=== PATIENT | female | born 1965 | race Caucasian/White ===

== ENCOUNTER → 2017-01-09 | Outpatient (REF) | payer MEDICAID ==
[~2017-01-09] MED LIST: FLEXERIL; LEVO25TA2; METH5TAB2
== END ==
LOC: M SFHCWAGY 15:49
PROVIDERS: ATTEND Nurse Practitioner Family
DX: Z12.4 Encounter for screening for malignant neoplasm of cervix (principal); Z12.31 Encounter for screening mammogram for malignant neoplasm of breast

== ENCOUNTER → 2017-01-09 | Outpatient (CLI) | payer MEDICAID ==
--- NOTE | 2017-01-13 08:21 | REPMRS ---
Patient History The patient states she had a clinical breast exam in 01/2017. Patient is postmenopausal and has history of cancer in the left breast at age 44. No known family history of cancer. Malignant lumpectomy of the left breast, 2009. Radiation therapy of the left breast. Taking tamoxifen for 5 years. Digital Woman Screen Mammo: January 09, 2017 - Exam #: [id number] Bilateral CC and MLO view(s) were taken. Technologist: Ilda Segura Technologist Prior study comparison: February 14, 2016, digital woman screen mammo performed at [facility] to [facility]. December 23, 2012, digital woman screen mammo performed at [facility]. December 25, 2011, bilateral digital mammo screening bilat, performed at [facility]. FINDINGS: The breast tissue is heterogeneously dense. This may lower the sensitivity of mammography. Post-treatment changes are again noted in the left breast. A needle biopsy marker clip is again noted in the right breast. There is a moderate amount of heterogeneously dense fibroglandular tissue which is fairly symmetric. There is no interval development of dominant mass, architectural distortion, or clustered microcalcification typical of malignancy. There has been no change in the appearance of the mammogram from the prior studies. ASSESSMENT: BI-RADS/ACR category 2 mammogram. Benign finding(s). Recommendation Routine screening mammogram of both breasts in 1 year (for women over age 40). This mammogram was interpreted with the aid of an FDA-approved computer-aided dectection system. Electronically Signed By: Tay Mauricio MD 01/09/17 [id number]
== END ==
LOC: M WHC 14:54
PROVIDERS: ATTEND Nurse Practitioner Family
DX: Z12.31 Encounter for screening mammogram for malignant neoplasm of breast (principal)

== ENCOUNTER 2017-07-13 16:55 | Emergency (ER) | payer MEDICAID ==
[~2017-07-13] VITALS: Ht 157.5 cm; Wt 52.3 kg
[2017-07-13 16:56] VITALS: BP 103/65
[2017-07-13] MEDS ORDERED: ADDE20CA3 (17:02)
[2017-07-13] MEDS ORDERED: XANA0.5T (17:02)
[2017-07-13] MEDS ORDERED: NEUR300C PO (17:02)
[2017-07-13] MEDS ORDERED: ACETAMINOPH W/CODEINE #3 TAB UD PO ONE (18:00)
--- NOTE | 2017-07-13 18:33 | REP ---
Chest x-ray: Two views. History: Cough. Comparison chest x-ray June 06, 2015. Findings: The lungs remain quite hyperinflated consistent with some degree of COPD. Pleural angles are sharp. No focal infiltrate is seen. The heart is not enlarged. Pulmonary vasculature is not increased. Interstitial markings are very slightly prominent as before. There are surgical clips projecting in the left axillary soft tissues. No significant bony abnormality. Impression: Hyperinflation consistent with some degree of COPD. No acute infiltrate. Signed by Abdiel Mauricio MD 07/13/2017 06:24 P
[2017-07-13] MEDS ORDERED: ACET30TAB PO (18:45)
== END 2017-07-13 19:16 | disposition home or self-care (01) ==
LOC: M ED 16:55
DX: S20.229A Contusion of unspecified back wall of thorax, initial encounter (principal); R05 Cough; J06.9 Acute upper respiratory infection, unspecified; Z72.0 Tobacco use; W10.8XXA Fall (on) (from) other stairs and steps, initial encounter; Y92.099 Unspecified place in other non-institutional residence as the place of occurrence of the external cause; Y93.01 Activity, walking, marching and hiking; Y99.9 Unspecified external cause status

== ENCOUNTER 2017-11-28 13:35 | Emergency (ER) | payer MEDICAID | END 2017-11-28 14:39 | disposition home or self-care (01) | LOC: M ED 13:35 | DX: S90.111A Contusion of right great toe without damage to nail, initial encounter (principal); W22.09XA Striking against other stationary object, initial encounter; Y92.096 Garden or yard of other non-institutional residence as the place of occurrence of the external cause; J45.909 Unspecified asthma, uncomplicated; F32.9 Major depressive disorder, single episode, unspecified; Z79.899 Other long term (current) drug therapy | CPT/HCPCS: 73630 ==

== ENCOUNTER → 2019-10-02 | Outpatient (CLI) | payer MEDICAID ==
[~2019-10-02] MED LIST changes: +ACET-716 PO; +ADDE20CA3; +BACL10TA2 PO; +NEUR300C PO; +XANA0.5T
--- NOTE | 2019-10-03 07:57 | REP ---
CHEST, TWO VIEWS: Two views of the chest are performed and compared to a prior study of 07/13/2017. Hyperinflation and diffuse interstitial fibrosis is unchanged. No acute infiltrate is seen. Heart is normal in size. There is calcification of the thoracic aorta. Mediastinal silhouette is unchanged. There are degenerative changes of the spine. IMPRESSION: Stable chronic findings. No acute infiltrate. Electronically Signed by Markos Luna MD 10/03/2019 01:21 P
== END ==
LOC: M LRY 17:12
PROVIDERS: ATTEND Nurse Practitioner Family
DX: R06.2 Wheezing (principal)

== ENCOUNTER 2021-04-06 10:13 | Emergency (ER) | payer MEDICAID, OTHER ==
[~2021-04-06] VITALS: Ht 157.5 cm; Wt 54.5 kg
[2021-04-06] MEDS ORDERED: ACET500P3 PO (10:33)
[2021-04-06] MEDS ORDERED: ONDANSETRON 4MG/2ML VIAL IV ONE (10:35)
[2021-04-06] MEDS ORDERED: NS 500 ML IV ONE (10:35)
[2021-04-06] MEDS: fentaNYL 100 MCG/2 ML INJECTION (J3010) IV PRN ×2 (11:01→13:33)
[2021-04-06 11:18] LABS: BASO % 0.4 % (0.0-1.0); EOS % 0.8 % (0.0-3.0); HEMATOCRIT 32.4 % (36.0-47.0); HEMOGLOBIN 11.1 g/dl (12.0-15.5); LYMPH # 1.1 10^3/uL (1.5-5.0); LYMPH % 22.6 % (24.0-44.0); MEAN CORPUSCULAR HEMOGLOBIN 37.2 pg (27.0-33.0); MEAN CORPUSCULAR HGB CONC 34.3 g/dl (32.0-36.5); MEAN CORPUSCULAR VOLUME 108.7 fl (80.0-96.0); MONO # 0.5 10^3/uL (0.0-0.8); MONO % 10.9 % (2.0-8.0); NEUTROPHILS # 3.1 10^3/uL (1.5-8.5); NEUTROPHILS % 64.9 % (36.0-66.0); PLATELET COUNT, AUTOMATED 300 10^3/uL (150-450); RED BLOOD COUNT 2.98 10^6/uL (4.00-5.40); WHITE BLOOD COUNT 4.8 10^3/uL (4.0-10.0)
[2021-04-06 11:44] LABS: ALBUMIN 3.4 GM/DL (3.2-5.2); ALT/SGPT 21 U/L (12-78); AMYLASE 37 U/L (25-115); BILIRUBIN,DIRECT < 0.1 MG/DL (0.0-0.2); BILIRUBIN,TOTAL 0.1 MG/DL (0.2-1.0); LIPASE 146 U/L (73-393); TOTAL PROTEIN 6.6 GM/DL (6.4-8.2)
[2021-04-06 11:45] VITALS: BP 107/64
[2021-04-06] MEDS ORDERED: ISOVUE-370 76% 100ML VIAL As Ordered ONE (12:44)
[2021-04-06] MEDS ORDERED: fentaNYL 100 MCG/2 ML INJECTION (J3010) IV PRN (13:10)
--- NOTE | 2021-04-06 13:28 | REP ---
INDICATION: left flank pain. COMPARISON: None. TECHNIQUE: Imaging protocol: Computed tomography of the abdomen and pelvis with IV contrast. Contiguous 3 mm thick axial projection images were obtained through the abdomen and pelvis. 2D sagittal and coronal reconstructions were performed. Radiation optimization: All CT scans at this facility use at least one of these dose optimization techniques: automated exposure control; mA and/or kV adjustment per patient size (includes targeted exams where dose is matched to clinical indication); or iterative reconstruction. Contrast material: ISOVUE 370; Contrast volume: 100 ml; Contrast route: INTRAVENOUS (IV). FINDINGS: Heart and lung bases: The lung bases are clear. There are no pleural effusions. The heart size is normal. There is no pericardial effusion. There is calcific vascular disease of the thoracic aorta. Liver: Normal. Gallbladder: Normal. Spleen: Normal. Pancreas: Normal. Adrenal glands: Normal. Kidneys/bladder: The kidneys enhance normally. There is no nephrolithiasis, ureterolithiasis or hydronephrosis. The urinary bladder has a normal unenhanced appearance. Pelvic structures: The uterus is retroverted. Suspect a fundal fibroid measuring approximately 3.5 x 2.9 cm. The ovaries are not well demonstrated. There is no free fluid the pelvis. There is no pelvic or inguinal lymphadenopathy. GI tract: There is a small hiatal hernia. There is stool throughout the colon. The appendix is surgically absent. Abdominal wall and mesentery: Status post umbilical hernia repair. There are no abdominal wall defects. There is no mesenteric or retroperitoneal lymphadenopathy. Abdominal aorta and vascular structures: There is calcific vascular disease of the abdominal aorta. The inferior vena cava and portal venous system are normal. Bony structures: There is moderate multilevel degenerative disc disease of the lower thoracic and lumbar spine with mild dextroscoliosis. The SI joints and hips are normal. IMPRESSION: 1. No evidence of nephrolithiasis, ureterolithiasis or hydronephrosis. 2. 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 3. There is a retroverted uterus. Suspect a fundal fibroid. 4. Mild constipation. 5. There is a small hiatal hernia. 6. Degenerative disc disease of the thoracolumbar spine with dextroscoliosis. <Electronically signed by Lio Dickey > 04/06/21 [id number]
[2021-04-06] MEDS ORDERED: IBUP-1022 PO (14:28)
[2021-04-06 16:09] LABS: HCG, SERUM QUANTITATIVE 14 MIU/ML
== END 2021-04-06 15:01 | disposition home or self-care (01) ==
LOC: M ED 10:13 → EDBD 10:13 → M ED 15:01
DX: R10.9 Unspecified abdominal pain (principal); M54.5 Low back pain; M06.9 Rheumatoid arthritis, unspecified; G43.909 Migraine, unspecified, not intractable, without status migrainosus; F33.9 Major depressive disorder, recurrent, unspecified; F41.9 Anxiety disorder, unspecified; Z79.899 Other long term (current) drug therapy
CPT/HCPCS: 74177; 80047; 80076; 81001; 82150; 83605; 83690; 84702; 85025; 87040; 93041; 96361; 96374; 96375; 96376; 99285; J2405; J3010; Q9967

== ENCOUNTER 2024-09-16 10:43 | Emergency (ER) | payer OTHER ==
[~2024-09-16] VITALS: Ht 157.5 cm; Wt 50.0 kg
[~2024-09-16 10:43] MED LIST changes: +ACET500P3 PO; +IBUP-1022 PO
[2024-09-16 12:57] LABS: KETONE, URINE AUTO RFX NEGATIVE (NEGATIVE); NITRITE, URINE AUTO RFX NEGATIVE (NEGATIVE); RBC, URINE AUTO RFX 0 /HPF (0-3); SQUAM EPITHELIAL CELL UR AURFX 3 /HPF (0-6); WBC, URINE AUTO RFX 2 /HPF (0-3)
[2024-09-16 13:21] LABS: LEUKOCYTE ESTERASE UR AUTO RFX 2+ (NEGATIVE)
[2024-09-16 13:23] LABS: BASO % 0.3 % (0.0-1.0); EOS # 0.3 10^3/uL (0.0-0.5); EOS % 1.9 % (0.0-3.0); HEMOGLOBIN 10.4 g/dl (12.0-15.5); LYMPH # 2.4 10^3/uL (1.5-5.0); LYMPH % 16.8 % (24.0-44.0); MEAN CORPUSCULAR HEMOGLOBIN 31.8 pg (27.0-33.0); MEAN CORPUSCULAR HGB CONC 30.6 g/dl (32.0-36.5); MONO # 1.4 10^3/uL (0.0-0.8); MONO % 9.8 % (2.0-8.0); NEUTROPHILS # 10.2 10^3/uL (1.5-8.5); NEUTROPHILS % 70.2 % (36.0-66.0); PLATELET COUNT, AUTOMATED 872 10^3/uL (150-450); RED BLOOD COUNT 3.27 10^6/uL (4.00-5.40); WHITE BLOOD COUNT 14.5 10^3/uL (4.0-10.0)
[2024-09-16 13:40] LABS: LIPASE 51 U/L (12-53)
[2024-09-16 13:41] LABS: AMYLASE 60 U/L (30-118)
[2024-09-16 13:42] LABS: ALBUMIN 3.4 G/DL (3.2-5.2); ALKALINE PHOSPHATASE 83 U/L (35-104); ALT/SGPT < 9 U/L (7.0-40); AST/SGOT 9 U/L (<34); BILIRUBIN,DIRECT < 0.1 MG/DL (<0.4); BILIRUBIN,TOTAL < 0.2 MG/DL (0.3-1.2); BLOOD UREA NITROGEN 25 MG/DL (9-23); CALCIUM LEVEL 10.5 MG/DL (8.3-10.6); CARBON DIOXIDE LEVEL 19 MMOL/L (20-31); CHLORIDE LEVEL 113 MMOL/L (98-107); CREATININE FOR GFR 0.98 MG/DL (0.55-1.30); GLOMERULAR FILTRATION RATE > 60.0 (>45); GLUCOSE, FASTING 93 MG/DL (74-106); SODIUM LEVEL 142 MMOL/L (136-145); TOTAL PROTEIN 7.4 G/DL (5.7-8.2)
[2024-09-16 15:14] VITALS: BP 110/65; TEMP 98.5; O2SAT 100
== END 2024-09-16 18:30 | disposition left against medical advice (07) ==
LOC: M ED 10:43
DX: Z53.21 Procedure and treatment not carried out due to patient leaving prior to being seen by health care provider (principal)

== ENCOUNTER → 2024-10-03 | Outpatient (CLI) | payer OTHER | LOC: M WHC 14:35 | PROVIDERS: ATTEND Nurse Practitioner Family | DX: Z12.31 Encounter for screening mammogram for malignant neoplasm of breast (principal); R92.343 Mammographic extreme density, bilateral breasts ==

== ENCOUNTER → 2024-10-10 | Outpatient (CLI) | payer OTHER | LOC: M WHC 12:21 | PROVIDERS: ATTEND Nurse Practitioner Family | DX: R92.8 Other abnormal and inconclusive findings on diagnostic imaging of breast (principal); R92.30 Dense breasts, unspecified; N63.14 Unspecified lump in the right breast, lower inner quadrant ==

== ENCOUNTER → 2024-10-20 | Outpatient (CLI) | payer OTHER ==
[~2024-10-20] MED LIST changes: +AMPH1CAP9 PO; +DOCU100C16 PO; +FAMO40TA3 PO; +GABA-1490 PO; +MIRT-10 PO; +SERT50TA29 PO
[2024-10-20 10:58] LABS: BASO % 0.5 % (0.0-1.0); EOS # 0.1 10^3/uL (0.0-0.5); EOS % 1.7 % (0.0-3.0); HEMATOCRIT 38.5 % (36.0-47.0); LYMPH # 1.8 10^3/uL (1.5-5.0); LYMPH % 21.8 % (24.0-44.0); MEAN CORPUSCULAR HEMOGLOBIN 31.1 pg (27.0-33.0); MEAN CORPUSCULAR HGB CONC 31.2 g/dl (32.0-36.5); MEAN CORPUSCULAR VOLUME 99.7 fl (80.0-96.0); MONO # 0.7 10^3/uL (0.0-0.8); MONO % 8.7 % (2.0-8.0); NEUTROPHILS # 5.5 10^3/uL (1.5-8.5); NEUTROPHILS % 66.8 % (36.0-66.0); PLATELET COUNT, AUTOMATED 310 10^3/uL (150-450); RED BLOOD COUNT 3.86 10^6/uL (4.00-5.40); WHITE BLOOD COUNT 8.3 10^3/uL (4.0-10.0)
== END ==
LOC: M LAB 10:14
PROVIDERS: ATTEND Internal Medicine Pulmonary Disease
DX: R91.8 Other nonspecific abnormal finding of lung field (principal)

== ENCOUNTER → 2024-10-25 | Outpatient (CLI) | payer OTHER | LOC: M PLARAD 13:50 | PROVIDERS: ATTEND Internal Medicine Pulmonary Disease | DX: Z85.3 Personal history of malignant neoplasm of breast (principal) | CPT/HCPCS: 78815; A9552 ==

== ENCOUNTER 2024-11-09 09:05 | Day surgery (SDC) | payer OTHER ==
[~2024-11-09] VITALS: Ht 157.5 cm; Wt 55.0 kg
[2024-11-09] MEDS ORDERED: ONDANSETRON 4MG 2ML VIAL As Ordered ONE (09:33)
[2024-11-09] MEDS ORDERED: fentaNYL 100 MCG/2 ML INJECTION As Ordered ONE (09:33)
[2024-11-09] MEDS ORDERED: MIDAZOLAM INJ 2MG/2ML VIAL As Ordered ONE (09:33)
[2024-11-09] MEDS ORDERED: propofoL 200 MG/20 ML VIAL As Ordered ONE (09:34)
[2024-11-09] MEDS ORDERED: ROCURONIUM BROMIDE 50MG/5ML VIAL As Ordered ONE (09:34)
[2024-11-09] MEDS ORDERED: LIDOCAINE 2% 100MG/5ML SDV (FOR ANES.) As Ordered ONE (09:34)
[2024-11-09] MEDS ORDERED: SUGAMMADEX SODIUM 500 MG/5 ML VIAL (BRIDION) As Ordered ONE (09:34)
[2024-11-09] MEDS ORDERED: ACETAMINOPHEN 1000MG/100ML IV BAG As Ordered ONE (09:35)
[2024-11-09] MEDS: LR 1,000 ML IV SCH (10:10)
[2024-11-09] MEDS: CETACAINE SPRAY 5GM As Ordered ONE (10:41)
[2024-11-09] MEDS ORDERED: GLYCOPYRROLATE INJ 0.2 MG/ML 2 ML VIAL As Ordered ONE (11:17)
[2024-11-09] MEDS: EPINEPHrine 1MG/10ML SYRINGE 1.5IN As Ordered ONE (11:24)
[2024-11-09] MEDS ORDERED: ONDANSETRON 4MG 2ML VIAL IV PRN (11:30)
[2024-11-09] MEDS ORDERED: fentaNYL 100 MCG/2 ML INJECTION IV PRN (11:30)
[2024-11-09 12:20] VITALS: BP 103/51; TEMP 98.5; O2SAT 93
== END 2024-11-09 13:15 | disposition home or self-care (01) ==
LOC: M SDC 09:05
PROVIDERS: ATTEND Internal Medicine Critical Care Medicine
DX: C34.32 Malignant neoplasm of lower lobe, left bronchus or lung (principal); Z79.899 Other long term (current) drug therapy; F17.210 Nicotine dependence, cigarettes, uncomplicated
CPT/HCPCS: 31625; 31654; 71045; 88173; 88305; J0131; J0171; J1100; J1596; J2250; J2405; J3010

== ENCOUNTER → 2024-11-30 | Outpatient (CLI) | payer OTHER ==
[~2024-11-30] MED LIST changes: +PROHANCE 279.3MG/ML 5ML VIAL ONE
== END ==
LOC: M PLAIMG 14:25
PROVIDERS: ATTEND Internal Medicine Pulmonary Disease
DX: C34.12 Malignant neoplasm of upper lobe, left bronchus or lung (principal)
CPT/HCPCS: 70553; A9576

== ENCOUNTER → 2024-12-15 | Outpatient (CLI) | payer OTHER ==
[~2024-12-15] MED LIST changes: +ONDA-282 PO; +PANT40TA29; -PROHANCE 279.3MG/ML 5ML VIAL ONE
== END ==
LOC: M ONCR 14:58
PROVIDERS: ATTEND General Practice
DX: C34.12 Malignant neoplasm of upper lobe, left bronchus or lung (principal); F17.210 Nicotine dependence, cigarettes, uncomplicated; J44.9 Chronic obstructive pulmonary disease, unspecified; Z79.899 Other long term (current) drug therapy; Z85.3 Personal history of malignant neoplasm of breast

== ENCOUNTER → 2025-03-02 | Outpatient (RCR) | payer OTHER ==
[~2025-03-02] MED LIST changes: +LIDO30CR18 TOP; +NICO7DIS24 TOP; +ONDA-84 PO; +ORAL0.1P MT; +PROC10TA5 PO
== END ==
LOC: M ONCR 01-31 10:10
PROVIDERS: ATTEND General Practice
DX: Z51.0 Encounter for antineoplastic radiation therapy (principal); C34.12 Malignant neoplasm of upper lobe, left bronchus or lung

== ENCOUNTER 2025-03-23 14:45 | Outpatient (RCR) | payer OTHER ==
[~2025-03-23 14:45] MED LIST changes: -IBUP-1022 PO; +IBUP600T42 PO
== END 2025-04-02 ==
LOC: M ONCR 14:45
PROVIDERS: ATTEND General Practice
DX: Z51.0 Encounter for antineoplastic radiation therapy (principal); C34.12 Malignant neoplasm of upper lobe, left bronchus or lung

== ENCOUNTER → 2025-04-07 | Outpatient (CLI) | payer OTHER ==
[~2025-04-07] MED LIST changes: +ISOVUE-370 76% 100 ML VIAL As Ordered ONE
== END ==
LOC: M RAD 16:24
PROVIDERS: ATTEND Internal Medicine Medical Oncology
DX: C34.90 Malignant neoplasm of unspecified part of unspecified bronchus or lung (principal)
CPT/HCPCS: 71260; 74177; Q9967

== ENCOUNTER → 2025-05-25 | Outpatient (CLI) | payer OTHER ==
[~2025-05-25] MED LIST changes: +LEVO25TA5 PO
== END ==
LOC: M RAD 16:13
DX: C34.90 Malignant neoplasm of unspecified part of unspecified bronchus or lung (principal); R42 Dizziness and giddiness; R94.6 Abnormal results of thyroid function studies; E05.90 Thyrotoxicosis, unspecified without thyrotoxic crisis or storm
CPT/HCPCS: 70491; Q9967